=== PATIENT | male | born 1990 | race American Indian/Alaskan Native ===

== ENCOUNTER 2017-02-01 02:20 | Emergency (ER) | payer MEDICAID, OTHER ==
[2017-02-01 02:53] VITALS: RESP 20; TEMP 98; O2SAT 98
--- NOTE | 2017-02-01 03:37 | C.PDOC ---
History Of Present Illness A 26 year old male presents to the ER c/o of right dental pain for 3 years. Patient notes he was scheduled for tooth extraction but due to insurance issues he was not able to. Patient reports swelling of the right tooth area so he took antibiotics from friends, but he notes the problem persisted. Patient also c/o pain of lower back. 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 Now he uses Marijuana everyday for his anxiety. Patient denies suicidal or homicidal ideation, hallucination, depression, trauma, injury weakness or numbness, or any other complaints. Time Seen by Provider: 02/01/17 03:03 Chief Complaint (Nursing): Back Pain History Per: Patient History/Exam Limitations: no limitations Onset/Duration Of Symptoms: Days Current Symptoms Are (Timing): Still Present Severity: Mild Previous Symptoms: Chronic Pain (Lower back and right dental area) Additional History Per: Patient Past Medical History Reviewed: Historical Data, Nursing Documentation, Vital Signs Vital Signs: Last Vital Signs Temp 98 F 02/01/17 02:36 Pulse 70 02/01/17 02:36 Resp 20 02/01/17 02:36 BP 136/86 02/01/17 02:36 Pulse Ox 98 02/01/17 03:54 - Medical History PMH: Depression Denies: Chronic Kidney Disease Family History: States: Unknown Family Hx - Social History Hx Alcohol Use: No Hx Substance Use: No (former marijuana smoker) Review Of Systems Except As Marked, All Systems Reviewed And Found Negative. Constitutional: Negative for: Other (Trauma. Injury) ENT: Positive for: Mouth Pain (Right dental area) Musculoskeletal: Positive for: Back Pain (Lower back) Neurological: Negative for: Weakness, Numbness Psych: Negative for: Depression, Suicidal ideation Physical Exam - Physical Exam Appears: Non-toxic, No Acute Distress Skin: Warm, Dry Head: Atraumatic, Normacephalic, No Swelling (No facial swelling.) Eye(s): bilateral: Normal Inspection Teeth: Caries (Dental cavity to the right upper 2nd molar), Tender To Palpation (Right upper molars) Gingiva: No Erythema, No Swelling (No gross swelling) Neurological/Psych: Oriented x3, Normal Speech, Normal Cognition ED Course And Treatment O2 Sat by Pulse Oximetry: 98 (Room air) Pulse Ox Interpretation: Normal Medical Decision Making Medical Decision Making: Plans: -Reassess and disposition Called crisis to evaluate patient Disposition Counseled Patient/Family Regarding: Diagnosis, Need For Followup, Rx Given - Disposition Disposition: HOME/ ROUTINE Disposition Time: 04:09 Condition: STABLE Additional Instructions: Call [place] for dental clinic at [facility] [phone] Take meds as prescribed Return if worse Prescriptions: Ibuprofen [Motrin] 600 mg PO Q6H #20 tab Penicillin VK [Pen-Vee K] 2 tab PO BID #28 tab Instructions: Dental Caries (ED) - Clinical Impression Clinical Impression: Dental caries, Back pain - Scribe Statement The provider has reviewed the documentation as recorded by the Scribe Nayla larose All medical record entries made by the Lloydibe were at my direction and personally dictated by me. I have reviewed the chart and agree that the record accurately reflects my personal performance of the history, physical exam, medical decision making, and the department course for this patient. I have also personally directed, reviewed, and agree with the discharge instructions and disposition.
[2017-02-01 04:45] VITALS: BP 137/76; PULSE 78
== END 2017-02-01 04:43 | disposition home or self-care (01) ==
LOC: C.ER 02:20
DX: K02.9 Dental caries, unspecified (principal); M54.5 Low back pain

== ENCOUNTER 2017-02-07 12:42 | Emergency (ER) | payer MEDICAID, OTHER ==
[2017-02-07 12:56] VITALS: BP 107/70; RESP 18; TEMP 98
[2017-02-07] MEDS ORDERED: Naproxen 550 mg Tab PO STA (13:33)
--- NOTE | 2017-02-07 13:35 | C.PDOC ---
History Of Present Illness 26 year old male presents to the emergency room with complaints of a painful lump in the middle of his back for the past several days. Patient denies any specific falls/injuries. Patient also reports dental pain to the right upper molar. Patient was seen in the ED for dental pain on 02/01/17 and was given prescriptions for Motrin and Penicillin. He states he did not fill the prescription because he doesn't have any money. Patient also has not followed up with the dentist yet, was unable to get an appointment. He denies fever/ chills, nausea/vomiting, intraoral discharge, back pain. Time Seen by Provider: 02/07/17 13:02 Chief Complaint (Nursing): Abnormal Skin Integrity History Per: Patient History/Exam Limitations: no limitations Onset/Duration Of Symptoms: Days Current Symptoms Are (Timing): Still Present Location Of Injury: Posterior: Back Quality Of Symptoms: Painful. denies: Itching, Swollen, Draining Severity: Mild Past Medical History Reviewed: Historical Data, Nursing Documentation, Vital Signs Vital Signs: Last Vital Signs Temp 98 F 02/07/17 12:54 Pulse 72 02/07/17 13:50 Resp 18 02/07/17 13:50 BP 107/70 02/07/17 12:54 Pulse Ox 95 02/07/17 16:53 - Medical History PMH: Depression Family History: States: No Known Family Hx - Social History Hx Alcohol Use: No Hx Substance Use: No (former marijuana smoker) Review Of Systems Except As Marked, All Systems Reviewed And Found Negative. Constitutional: Negative for: Fever, Chills ENT: Positive for: Mouth Pain (Right upper molar - dental pain) Cardiovascular: Negative for: Chest Pain, Palpitations Respiratory: Negative for: Cough, Shortness of Breath Gastrointestinal: Negative for: Nausea, Vomiting, Abdominal Pain, Diarrhea Skin: Positive for: Other (Painful lump in the middle of the back. ) Neurological: Negative for: Headache, Dizziness Physical Exam - Physical Exam Appears: Well, Non-toxic, No Acute Distress Skin: Normal Color, Warm, Dry, No Rash Head: Normacephalic Eye(s): bilateral: Normal Inspection Nose: Normal, No Discharge, No Tenderness Oral Mucosa: Moist Tongue: Normal Appearing Lips: Normal Appearing Teeth: Other (Tooth #3 missing, surrounding gingiva TTP, no discharge. No fluctuance/induration) Gingiva: No Erythema, Swelling (Mild gingival swelling) Throat: Normal, No Erythema, No Exudate Neck: Normal, Normal ROM Cardiovascular: Rhythm Regular Respiratory: Normal Breath Sounds, No Rales, No Rhonchi, No Wheezing Gastrointestinal/Abdominal: Normal Exam, Bowel Sounds, Soft, No Tenderness Back: No CVA Tenderness, No Vertebral Tenderness, No Paraspinal Tenderness, Other (At approx T10-11 area, area of soft palpable swelling, mildly TTP, without erythema/fluctuance, likely a lipoma ) Extremity: Normal ROM, No Tenderness Neurological/Psych: Oriented x3 Gait: Steady ED Course And Treatment O2 Sat by Pulse Oximetry: 95 (RA) Pulse Ox Interpretation: Normal Progress Note: Patient gvkaren PO Naprosyn for pain. He was instructed to follow up with dentist once again, and given information for [facility]. He was also instructed to go downstairs after discharge and schedule surgical clinic appointment for evaluation/removal of lipoma. He was given Rx for Naprosyn, and instructed to return to ED if symptoms worsen. Reevaluation Time: 13:50 Reassessment Condition: Improved Disposition Counseled Patient/Family Regarding: Diagnosis, Need For Followup, Rx Given - Disposition Referrals: [facility] [Outside] [facility] [Outside] [facility] [Outside] Disposition: HOME/ ROUTINE Disposition Time: 13:50 Condition: STABLE Additional Instructions: FOLLOW UP WITH DENTIST WITHIN 1 WEEK MAKE APPOINTMENT AT [facility]GICAL [facility] AFTER YOU LEAVE ER FOR EVALUATION OF LIPOMA RETURN TO ER IF SYMPTOMS WORSEN Prescriptions: Naproxen [Naprosyn Tab] 375 mg PO BID PRN #15 tab PRN Reason: pain Instructions: Lipoma (ED), Toothache (ED) Print Language: POLISH - POA Present On Arrival: None - Clinical Impression Clinical Impression: Toothache, Lipoma of back - Scribe Statement The provider has reviewed the documentation as recorded by the Lloydibstacy Vazquez All medical record entries made by the Lloydibstacy were at my direction and personally dictated by me. I have reviewed the chart and agree that the record accurately reflects my personal performance of the history, physical exam, medical decision making, and the department course for this patient. I have also personally directed, reviewed, and agree with the discharge instructions and disposition.
[2017-02-07] MEDS ORDERED: Naproxen 550 mg Tab PO ONE (13:46)
[2017-02-07 13:52] VITALS: PULSE 72
[2017-02-07 14:53] VITALS: O2SAT 95
== END 2017-02-07 13:53 | disposition home or self-care (01) ==
LOC: C.ER 12:42
DX: D17.1 Benign lipomatous neoplasm of skin and subcutaneous tissue of trunk (principal); K08.89 Other specified disorders of teeth and supporting structures

== ENCOUNTER → 2017-03-09 10:23 | Emergency (ER) | payer MEDICAID | END | disposition left against medical advice (07) | LOC: C.ER 10:23 | DX: M54.9 Dorsalgia, unspecified (principal); Z02.9 Encounter for administrative examinations, unspecified ==

== ENCOUNTER 2018-06-24 15:52 | Emergency (ER) | payer MEDICAID ==
[2018-06-24 16:21] VITALS: TEMP 98.5
--- NOTE | 2018-06-24 16:55 | C.PDOC ---
History Of Present Illness 27 year old male presents to the emergency department with complaints of pain to his left shoulder since 2 days ago. Patient states he and a friend were wrestling for the basketball when he felt his shoulder pop out and fell on his knees. States it was put back by a friend and felt better, but has felt discomfort since. Otherwise patient denies any weakness, numbness, or leg pain. Time Seen by Provider: 06/24/18 16:40 Chief Complaint (Nursing): Upper Extremity Problem/Injury History Per: Patient History/Exam Limitations: no limitations Onset/Duration Of Symptoms: Days Current Symptoms Are (Timing): Still Present Past Medical History Reviewed: Historical Data, Nursing Documentation, Vital Signs Vital Signs: Last Vital Signs Temp 98.5 F 06/24/18 16:16 Pulse 79 06/24/18 18:04 Resp 16 06/24/18 18:04 BP 111/65 06/24/18 18:04 Pulse Ox 99 06/24/18 18:04 - Medical History PMH: Anxiety, Depression Denies: Chronic Kidney Disease Family History: States: No Known Family Hx - Social History Hx Tobacco Use: Yes Hx Alcohol Use: No Hx Substance Use: No (former marijuana smoker) - Immunization History Hx Tetanus Toxoid Vaccination: No Hx Influenza Vaccination: No Hx Pneumococcal Vaccination: No Review Of Systems Except As Marked, All Systems Reviewed And Found Negative. Constitutional: Negative for: Fever, Chills Cardiovascular: Negative for: Chest Pain Respiratory: Negative for: Shortness of Breath Musculoskeletal: Positive for: Arm Pain (Left shoulder pain) Neurological: Negative for: Weakness, Numbness Physical Exam - Physical Exam Appears: Non-toxic, No Acute Distress Skin: Normal Color, Warm, Dry Head: Atraumatic, Normacephalic Eye(s): bilateral: Normal Inspection Neck: Normal Extremity: Normal ROM, Tenderness (to AC joint on L shoulder), Capillary Refill (less 2 sec), No Deformity, No Swelling Extremity: Bilateral: Atraumatic Neurological/Psych: Oriented x3, Normal Speech, Normal Motor, Normal Sensation Gait: Steady ED Course And Treatment O2 Sat by Pulse Oximetry: 98 (RA) Pulse Ox Interpretation: Normal - Other Rad Shoulder X-Ray X-Ray: Read By Radiologist Interpretation: FINDINGS: BONES: Bone alignment and mineralization are normal. There is no acute displaced fracture or bone destruction. JOINTS: Normal. Glenohumeral and acromioclavicular joints preserved. No osteoarthritis. SOFT TISSUES: Normal. OTHER FINDINGS: None. IMPRESSION: No acute fracture or dislocation. Reassessment Condition: Improved (On re-evaluation pt reports improvement of pain) Medical Decision Making Medical Decision Making: Impression: Left Shoulder Pain Plan: -Motrin 600mg PO -Left Shoulder X-Ray Disposition Counseled Patient/Family Regarding: Studies Performed, Diagnosis, Need For Followup, Rx Given - Disposition Referrals: Holden Huang MD [Staff Provider] - [facility] [Outside] Disposition: HOME/ ROUTINE Disposition Time: 17:48 Condition: STABLE Additional Instructions: FOLLOW UP WITH DR. ALANIZ THIS WEEK FOR RE-EVALUATION. SLING FOR COMFORT FOR 2 DAYS. IF SYMPTOMS GET WORSE OR ANY NEW CONCERNING SYMPTOMS DEVELOP RETURN TO ED. 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 - Scribe Statement The provider has reviewed the documentation as recorded by the Scribstacy Benjamin All medical record entries made by the Batsheva were at my direction and personally dictated by me. I have reviewed the chart and agree that the record accurately reflects my personal performance of the history, physical exam, medical decision making, and the department course for this patient. I have also personally directed, reviewed, and agree with the discharge instructions and disposition.
--- NOTE | 2018-06-24 17:24 | RAD ---
Date of service: 06/24/2018 PROCEDURE: Radiographs of the Left Shoulder HISTORY: pain p fall COMPARISON: No prior. FINDINGS: BONES: Bone alignment and mineralization are normal. There is no acute displaced fracture or bone destruction. JOINTS: Normal. Glenohumeral and acromioclavicular joints preserved. No osteoarthritis. SOFT TISSUES: Normal. OTHER FINDINGS: None. IMPRESSION: No acute fracture or dislocation.
[2018-06-24 18:05] VITALS: BP 111/65; PULSE 79; RESP 16
[2018-06-24 18:25] VITALS: O2SAT 98
== END 2018-06-24 18:04 | disposition home or self-care (01) ==
LOC: C.ER 15:52
DX: M25.512 Pain in left shoulder (principal)

== ENCOUNTER 2018-08-13 21:14 | Emergency (ER) | payer MEDICAID ==
[2018-08-13 21:42] VITALS: BP 131/74; PULSE 71; RESP 97; TEMP 98.8; O2SAT 98
--- NOTE | 2018-08-13 22:17 | C.PDOC ---
History Of Present Illness 27 year old male with a Hx of chronic back pain presents to the ER with a complaint of back pain after he was getting out of his bed and felt like his upper back locked on him. Patient reports the pain feels similar to past exacerbations of his back pain. Patient ran out of his oxycodon and does not have an appointment with his PMD until the of this month. Denies weakness, numbness, incontinence, dysuria, hematuria, or trauma. Time Seen by Provider: 08/13/18 21:43 Chief Complaint (Nursing): Back Pain History Per: Patient History/Exam Limitations: no limitations Onset/Duration Of Symptoms: Hrs Current Symptoms Are (Timing): Still Present Quality Of Discomfort: Unable To Describe Previous Symptoms: Chronic Pain (Back) Associated Symptoms: None Recent travel outside of the [place]: No Past Medical History Reviewed: Historical Data, Nursing Documentation, Vital Signs Vital Signs: Last Vital Signs Temp 98.8 F 08/13/18 21:36 Pulse 71 08/13/18 21:36 Resp 97 H 08/13/18 21:36 BP 131/74 08/13/18 21:36 Pulse Ox 98 08/13/18 21:36 - Medical History PMH: Anxiety, Depression Denies: Chronic Kidney Disease Family History: States: Unknown Family Hx - Social History Hx Tobacco Use: Yes Hx Alcohol Use: No Hx Substance Use: No (former marijuana smoker) - Immunization History Hx Tetanus Toxoid Vaccination: Yes Hx Influenza Vaccination: Yes Hx Pneumococcal Vaccination: Yes Review Of Systems Genitourinary: Negative for: Dysuria, Incontinence, Hematuria Musculoskeletal: Positive for: Back Pain Neurological: Negative for: Weakness, Numbness Physical Exam - Physical Exam Appears: Non-toxic Skin: Normal Color, Warm, Dry Head: Atraumatic, Normacephalic Eye(s): bilateral: Normal Inspection Back: No Vertebral Tenderness, Paraspinal Tenderness (Upper and mid) Extremity: Normal ROM (x4) Neurological/Psych: Oriented x3, Normal Speech, Normal Motor, Normal Sensation Gait: Steady ED Course And Treatment O2 Sat by Pulse Oximetry: 98 (Room air) Pulse Ox Interpretation: Normal Progress Note: Flexeril and naproxen administered with relief. Patient is resting comfortably in no acute distress, ambulatory with steady gait, vitals are stable, will discharge home with Rx and instructions to follow up with PMD. 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 - Scribe Statement The provider has reviewed the documentation as recorded by the Scribstacy Valdez All medical record entries made by the Lloydibstacy were at my direction and personally dictated by me. I have reviewed the chart and agree that the record accurately reflects my personal performance of the history, physical exam, medical decision making, and the department course for this patient. I have also personally directed, reviewed, and agree with the discharge instructions and disposition.
[2018-08-13] MEDS ORDERED: Naproxen 550 mg Tab PO STA (22:18)
[2018-08-13] MEDS ORDERED: Naproxen 550 mg Tab PO ONE (22:23)
== END 2018-08-13 22:46 | disposition home or self-care (01) ==
LOC: C.ER 21:14
DX: M54.9 Dorsalgia, unspecified (principal); Z72.0 Tobacco use

== ENCOUNTER 2018-08-20 20:52 | Emergency (ER) | payer MEDICAID ==
--- NOTE | 2018-08-20 21:35 | C.PDOC ---
History Of Present Illness 27 year old male with a history of chronic back pain presents to the ED requesting pain medication for back pain. Patient reports nausea, vomiting, and diarrhea. States he ran out of his medication prescribed by pain management doctor. Notes his next appointment is in 1 week. Denies fever and any other associated symptoms. Time Seen by Provider: 08/20/18 21:11 Chief Complaint (Nursing): Back Pain History Per: Patient History/Exam Limitations: no limitations Onset/Duration Of Symptoms: Persistent Current Symptoms Are (Timing): Still Present Quality Of Discomfort: "Pain" Pain Scale Rating Of: 8 Previous Symptoms: Chronic Pain Associated Symptoms: denies: Incontinence, New Weakness, New Numbness Exacerbating Factor(s): Turning, Movement Recent travel outside of the [place]: No Past Medical History Reviewed: Historical Data, Nursing Documentation, Vital Signs Vital Signs: Last Vital Signs Temp 98.6 F 08/20/18 21:08 Pulse 85 08/20/18 21:08 Resp 20 08/20/18 21:08 BP 125/64 08/20/18 21:08 Pulse Ox 96 08/20/18 21:08 - Medical History PMH: Anxiety, Depression Denies: Chronic Kidney Disease Family History: States: Unknown Family Hx - Social History Hx Tobacco Use: Yes Hx Alcohol Use: No Hx Substance Use: No (former marijuana smoker) - Immunization History Hx Tetanus Toxoid Vaccination: Yes Hx Influenza Vaccination: Yes Hx Pneumococcal Vaccination: Yes Review Of Systems Constitutional: Negative for: Fever Gastrointestinal: Positive for: Nausea, Vomiting, Diarrhea Physical Exam - Physical Exam Appears: Non-toxic Skin: Normal Color, Warm, Dry Head: Atraumatic, Normacephalic Eye(s): bilateral: Normal Inspection Oral Mucosa: Moist Neck: Normal ROM, Supple Chest: Symmetrical, No Deformity Cardiovascular: Rhythm Regular, No Friction Rub, No Murmur Respiratory: Normal Breath Sounds, No Rales, No Rhonchi, No Wheezing Gastrointestinal/Abdominal: Normal Exam, Soft, No Tenderness Extremity: Normal ROM (x4) Neurological/Psych: Oriented x3, Normal Speech, Normal Motor, Normal Sensation, Normal Reflexes ED Course And Treatment O2 Sat by Pulse Oximetry: 96 (RA) Pulse Ox Interpretation: Normal Medical Decision Making Medical Decision Making: Plan: -Decadron. Percocet Toradol Progress/Update: Pain policy per [employer] stating we do not refill px for narcotics as patient has contract with pain management already. Patient had refused the Decadron IM. Patient left prior to discharge. Disposition - Disposition Referrals: Jaya Banda MD [Staff Provider] - Disposition: HOME/ ROUTINE Disposition Time: 21:56 Condition: STABLE Additional Instructions: Follow up with the medical doctor/clinic within 1-2 days. Return if worsened. 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 - Scribe Statement The provider has reviewed the documentation as recorded by the Scribe (Cynthia Hobbs) All medical record entries made by the Scribe were at my direction and personally dictated by me. I have reviewed the chart and agree that the record accurately reflects my personal performance of the history, physical exam, medical decision making, and the department course for this patient. I have also personally directed, reviewed, and agree with the discharge instructions and disposition.
[2018-08-20] MEDS ORDERED: Oxycodone/Acetaminophen 5/325 mg Tab PO STA (21:46)
[2018-08-20] MEDS ORDERED: Dexamethasone 4 mg/1 ml IM STA (21:46)
[2018-08-20] MEDS ORDERED: Oxycodone/Acetaminophen 5/325 mg Tab ONE (21:52)
[2018-08-21 01:18] VITALS: BP 125/64; PULSE 85; RESP 20; TEMP 98.6; O2SAT 96
== END 2018-08-20 22:03 | disposition home or self-care (01) ==
LOC: C.ER 20:52
DX: G89.29 Other chronic pain (principal); M54.9 Dorsalgia, unspecified; M25.512 Pain in left shoulder
CPT/HCPCS: 96372; 99283; J1885

== ENCOUNTER → 2018-09-17 16:00 | Emergency (ER) | payer MEDICAID | END | disposition left against medical advice (07) | LOC: C.ER 16:00 | DX: Z02.89 Encounter for other administrative examinations (principal); M54.9 Dorsalgia, unspecified ==

== ENCOUNTER 2018-10-08 12:39 | Outpatient (CLI) | payer MEDICAID | END 2018-10-08 12:40 | disposition home or self-care (01) | LOC: C.MRIC 12:40 | DX: M54.5 Low back pain (principal); M54.6 Pain in thoracic spine ==

== ENCOUNTER 2019-02-07 11:21 | Emergency (ER) | payer MEDICAID, OTHER ==
[2019-02-07 11:38] VITALS: BP 128/78; PULSE 64; RESP 18; TEMP 98.4; O2SAT 99
--- NOTE | 2019-02-07 11:51 | C.PDOC ---
History Of Present Illness 28 year old male presents to ED with complaint of worsening chronic back pain for the past week. Patient states that he has PMHx of bulging discs in his spine (unsure of location). Patient states that he has been seeing pain management, who has given prescriptions for Percocet and Flexeril in the past, but ran out 1 week ago. Patient states that he has been unable to see pain management for refills. Patient mainly complains of lower back pain and rates the pain a 7/10. Patient denies pain radiation to the legs,trauma, fall, numbness, tingling, incontinence, and weakness. Time Seen by Provider: 02/07/19 11:44 Chief Complaint (Nursing): Medical Clearance History Per: Patient History/Exam Limitations: no limitations Onset/Duration Of Symptoms: Days (7) Current Symptoms Are (Timing): Still Present Past Medical History Reviewed: Historical Data, Nursing Documentation, Vital Signs Vital Signs: Last Vital Signs Temp 98.4 F 02/07/19 11:27 Pulse 64 02/07/19 11:27 Resp 18 02/07/19 11:27 BP 128/78 02/07/19 11:27 Pulse Ox 99 02/07/19 11:27 Primary Care Provider: FAMILY PROVIDER,NO - Medical History PMH: Anxiety, Back Problems (chronic ), Depression Denies: Chronic Kidney Disease Surgical History: No Surg Hx Family History: States: Unknown Family Hx - Social History Hx Tobacco Use: Yes Hx Alcohol Use: No Hx Substance Use: No (former marijuana smoker) - Immunization History Hx Tetanus Toxoid Vaccination: Yes Hx Influenza Vaccination: Yes Hx Pneumococcal Vaccination: Yes Review Of Systems Constitutional: Negative for: Weakness Genitourinary: Negative for: Incontinence Musculoskeletal: Positive for: Back Pain (lower back ). Negative for: Neck Pain, Leg Pain Neurological: Negative for: Weakness, Numbness Physical Exam - Physical Exam Appears: Well, Non-toxic, No Acute Distress Skin: Normal Color, Warm, Dry Head: Atraumatic, Normacephalic Eye(s): bilateral: Normal Inspection Neck: Normal ROM, No Midline Cervical Tenderness, No Paracervical Tenderness, Supple Chest: Symmetrical, No Deformity Cardiovascular: Rhythm Regular, No Murmur Respiratory: Normal Breath Sounds, No Accessory Muscle Use, No Rales, No Rhonchi, No Wheezing Gastrointestinal/Abdominal: Soft, No Tenderness Back: No CVA Tenderness, Vertebral Tenderness (lumbar tenderness), Paraspinal Tenderness (lumbar area tenderness), No Other (ecchymosis, edema, erythema) Extremity: Normal ROM, Capillary Refill (<2 seconds) Extremity: Bilateral: Atraumatic, Normal Color And Temperature, Normal ROM Pulses: Left Radial: Normal, Right Radial: Normal, Left Dorsalis Pedis: Normal, Right Dorsalis Pedis: Normal Neurological/Psych: Oriented x3, Normal Speech, Normal Cognition, Normal Motor, Normal Sensation Gait: Steady ED Course And Treatment O2 Sat by Pulse Oximetry: 99 (in RA) Pulse Ox Interpretation: Normal Medical Decision Making Medical Decision Making: Impression: 28 year old male presents to ED with complaint of worsening chronic back pain for the past week. Initial Plan: Naproxen Flexeril Lidoderm patch On reassessment, patient notes improvement and is stable for discharge. Disposition Counseled Patient/Family Regarding: Diagnosis, Need For Followup, Rx Given, Smoking Cessation - Disposition Referrals: [facility] [Outside] [facility] [Outside] Disposition: HOME/ ROUTINE Disposition Time: 12:30 Condition: STABLE Additional Instructions: continue meds as prescribed follow up with pain management for further treatment [facility] return to ED if symptoms worsen Prescriptions: Cyclobenzaprine [Flexeril] 10 mg PO TID PRN #15 tab PRN Reason: Muscle Spasm Lidocaine 5% [Lidoderm] 1 ea TD PRN PRN #30 patch PRN Reason: Pain, Moderate (4-7) Naproxen [Naprosyn] 500 mg PO BID #30 tablet Instructions: Low Back Pain (DC), Anxiety, Adult (DC) Forms: [id number] (Gabonese) - Clinical Impression Clinical Impression: Anxiety, Chronic back pain - PA / [employer] / Resident Statement MD/DO has reviewed & agrees with the documentation as recorded. (Keerthi Duron) - Scribe Statement The provider has reviewed the documentation as recorded by the Scribe (Keerthi Duron) All medical record entries made by the Scribe were at my direction and personally dictated by me. I have reviewed the chart and agree that the record accurately reflects my personal performance of the history, physical exam, medical decision making, and the department course for this patient. I have also personally directed, reviewed, and agree with the discharge instructions and disposition.
[2019-02-07] MEDS ORDERED: Naproxen 550 mg Tab PO STA (12:00)
[2019-02-07] MEDS ORDERED: Lidocaine 5% Patch TD STA (12:00)
[2019-02-07] MEDS ORDERED: Naproxen 550 mg Tab PO ONE (12:20)
[2019-02-07] MEDS ORDERED: Lidocaine 5% Patch TD ONE (12:20)
== END 2019-02-07 12:37 | disposition home or self-care (01) ==
LOC: C.ER 11:21
DX: G89.29 Other chronic pain (principal); M54.5 Low back pain; F41.9 Anxiety disorder, unspecified; Z72.0 Tobacco use